=== PATIENT | male | born 1990 | race African-American/Black ===

== ENCOUNTER 2020-12-17 21:08 | Emergency (ER) | payer SELFPAY ==
[2020-12-17 22:26] LABS: Amphetamine Detected (NotDetected); Barbiturates Screen Not Detected (NotDetected); Benzodiazepine Screen Not Detected (NotDetected); Cocaine Metabolite Screen Not Detected (NotDetected); Methadone Not Detected (NotDetected); Methamphetamine Detected (NotDetected); Opiate Screen Not Detected (NotDetected); Oxycodone Screen Not Detected (NotDetected); Phencyclidine (PCP) Not Detected (NotDetected); THC/Cannabinoid Screen Not Detected (NotDetected); Tricyclic Screen Not Detected (NotDetected)
[2020-12-17 22:28] LABS: Acetaminophen Less than 6.0 mcg/mL (10.0-30.0); Alcohol Less than 10 mg/dL (Less than 10); Salicylate Less than 8.0 mg/dL (15.0-30.0)
[2020-12-17] MEDS ORDERED: Ondansetron PF 4 MG/2 ML Vial ONE (23:35)
[2020-12-17] MEDS ORDERED: Ondansetron ODT 4 MG TAB ONE (23:36)
== END 2020-12-17 23:16 ==
LOC: ERS 21:08
DX: T40.1X1A Poisoning by heroin, accidental (unintentional), initial encounter (principal); R40.4 Transient alteration of awareness; F17.200 Nicotine dependence, unspecified, uncomplicated
CPT/HCPCS: 36415; 80306; 80307; 93005; 99284; J2405; Q0162

== ENCOUNTER 2021-02-04 21:24 | Emergency (ER) | payer SELFPAY ==
[2021-02-04] MEDS ORDERED: CEFAZOLIN 1 GM VIAL ONE ×2 (21:29→21:32)
[2021-02-04] MEDS ORDERED: Morphine 4 MG/ML VIAL ONE (21:31)
[2021-02-04] MEDS ORDERED: Boostrix 0.5 ML (Tdap) VIAL ONE (21:39)
[2021-02-04 21:42] LABS: #Eosinphils 0.2 thou/uL (0.0-0.7); #Lymphocytes 2.4 thou/uL (1.20-3.40); #Monocytes 0.3 thou/uL (0.11-0.59); #Neutrophils 2.5 thou/uL (1.40-6.50); %Basophils 0.7 % (0.0-1.0); %Eosinophils 3.4 % (0.0-10.0); %Lymphocytes 44.9 % (21.0-51.0); %Monocytes 5.3 % (0.0-10.0); %Neutrophils 45.7 % (42.0-75.0); Hemoglobin 12.9 g/dL (14.0-18.0); Mean Corpuscular HGB CONC 34.3 g/dL (32.0-36.0); Mean Corpuscular Hemoglobin 32.3 pg (27.0-31.0); Mean Corpuscular Volume 94.1 fL (78.0-98.0); Mean Platelet Volume 7.9 fL (7.4-10.4); Platelet Count 246 thou/uL (130-400); White Blood Cell (WBC) Count 5.4 thou/uL (4.8-10.8)
[2021-02-04 21:54] LABS: ALT (SGPT) 20 U/L (8-55); AST (SGOT) 26 U/L (5-34); Albumin 3.9 g/dL (3.5-5.0); Alkaline Phosphatase 70 U/L (40-110); Anion Gap 14 mmol/L (10-20); BUN (Urea Nitrogen) 9 mg/dL (8.9-20.6); Bilirubin, Total 0.5 mg/dL (0.2-1.2); Calc. Creatinine Clearance 0 mL/min (70-130); Calcium 9.5 mg/dL (7.8-10.44); Carbon Dioxide 23 mmol/L (22-29); Chloride 105 mmol/L (98-107); Globulin 3.5 g/dL (2.4-3.5); Glucose 118 mg/dL (70-105); Potassium 3.8 mmol/L (3.5-5.1); Protein, Total 7.4 g/dL (6.0-8.3); Sodium 138 mmol/L (136-145)
[2021-02-04 21:57] LABS: Lactic Acid 3.8 mmol/L (0.5-2.2)
== END 2021-02-04 23:30 | disposition home or self-care (01) ==
LOC: ERS 21:24
DX: S71.132A Puncture wound without foreign body, left thigh, initial encounter (principal); W32.0XXA Accidental handgun discharge, initial encounter; F17.210 Nicotine dependence, cigarettes, uncomplicated
CPT/HCPCS: 36415; 80053; 80307; 83605; 85025; 86850; 86900; 86901; 90471; 90715; 96365; 96366; 96375; G0390; J0690; J2270